=== PATIENT | male | born 1975 | race Caucasian/White ===

== ENCOUNTER 2019-04-24 10:28 | Day surgery (SDC) | payer OTHER ==
[2019-04-17 15:52] VITALS: BMI 27.8
--- NOTE | 2019-04-24 07:39 | HP ---
History & Physical Update - History History: No Change - Physical Physical: No Change - Assessment Assessment: No Change - Plan Plan: No Change
[~2019-04-24 10:28] MED LIST: oxyCODONE HCL 10 MG SUSTAINED ACTING TABLET PO STA
[2019-04-24] MEDS ORDERED: oxyCODONE HCL 10 MG SUSTAINED ACTING TABLET ONE (10:58)
[2019-04-24] MEDS ORDERED: methylPREDNISolone ACET (DEPO) 40 MG/1 ML VIAL ONE (11:51)
[2019-04-24] MEDS ORDERED: GUM MASTIC/STORAX/MSAL/ALCOHOL 1 DRP DROPSBTL MC ONE (11:51)
[2019-04-24] MEDS ORDERED: THROMBIN (RECOMBINANT) 5,000 UNIT VIAL TP ONE ×2 (11:51→15:15)
[2019-04-24] MEDS ORDERED: LIDOCAINE 1%/EPI 1:100000 (20 ML MULTI DOSE VIAL) ONE (11:51)
[2019-04-24] MEDS ORDERED: MIDAZOLAM HCL 2 MG/2 ML SINGLE DOSE VIAL ONE ×4 (11:55→14:38)
[2019-04-24] MEDS ORDERED: BUPIVACAINE HCL/PF 0.5% (5 MG/ML) 30 ML VIAL IJ ONE (11:55)
[2019-04-24] MEDS ORDERED: DEXAMETHASONE SOD PHOSPHATE/PF 10 MG/ML SDV ONE (11:55)
[2019-04-24] MEDS ORDERED: BUPIVACAINE HCL/PF 0.5% (5MG/ML) 10 ML VIAL ONE (13:31)
[2019-04-24] MEDS ORDERED: SUCCINYLCHOLINE CHLORIDE 200 MG/10 ML SYRINGE ONE (13:32)
[2019-04-24] MEDS ORDERED: ceFAZolin SODIUM 1 GM VIAL ONE (13:33)
[2019-04-24] MEDS ORDERED: ONDANSETRON 4 MG/2 ML VIAL ONE ×2 (13:33→16:16)
[2019-04-24] MEDS ORDERED: THROMBIN (BOVINE) 5,000 UNIT VIAL TP ONE (14:40)
[2019-04-24] MEDS ORDERED: GELATIN, ABSORBABLE 100 EACH SPONGE TP ONE (14:40)
[2019-04-24] MEDS ORDERED: oxyCODONE HCL 5 MG TABLET PO PRN ×2 (15:50)
[2019-04-24] MEDS ORDERED: ACETAMINOPHEN 1000 MG/100 ML VIAL (NON FORMULARY) IVPB ONE (15:51)
--- NOTE | 2019-04-24 15:57 | OP ---
Operative Note - Note: Operative Date: 04/24/19 Pre-Operative Diagnosis: L5/S1 stenosis w/ RLE radiculopathy Operation: L5/S1 bilateral laminectomy Post-Operative Diagnosis: Same as Pre-op Surgeon: Ghulam Cui Vessel Slag Worker: Sameer Carrero Anesthesiologist/BOILER COVERER HELPER: Rivera Latham Anesthesia: Spinal Estimated Blood Loss (mls): 15 Fluid Volume Replaced (mls): 700 Operative Report Dictated: Yes
--- NOTE | 2019-04-24 15:58 | SURG ---
Surgery School Psychologist Note School Psychologist: Sameer Carrero PA-C Date of Service: 04/24/19 Diagnosis: L5/S1 stenosis w/ RLE radiculopathy Procedure: L5/S1 bilateral laminectomy I was present for the entirety of the operative procedure. For further detail, please refer to operative report. Visit type - Case Type Case Type: Scheduled - New patient This patient is new to me today: Yes Date on this admission: 04/24/19
--- NOTE | 2019-04-24 15:59 | OP ---
DATE OF OPERATION: 04/24/2019 PREOPERATIVE DIAGNOSIS: Spinal stenosis, L4-5, L5-S1. POSTOPERATIVE DIAGNOSIS: Spinal stenosis, L4-5, L5-S1. PROCEDURE PERFORMED: Laminectomy, L4-5, L5-S1. SURGEON: Ghulam Cui MD LINK FABRIC MACHINE OPERATOR: DOTTIE Glynn. ESTIMATED BLOOD LOSS: 50 mL. INTRAVENOUS FLUIDS: Per Anesthesia. ANESTHESIA: Spinal/TLIP. COMPLICATIONS: None. DISPOSITION: Patient brought to the PACU in stable condition. INDICATIONS FOR SURGERY: Patient is a 43-year-old gentleman who has been suffering from pain from his back down his leg. X-rays and MRI were completed which noted that he had spinal stenosis from L4 down to S1. He had gone through an exhaustive course of treatment for this, which included medications, physical therapy as well as injections. Unfortunately, his pain continued to persist despite all this. At this point, risks, benefits, and alternatives were discussed, and the patient consented to surgery. DESCRIPTION OF PROCEDURE: Patient was brought to the operating room by the anesthesia staff. After appropriate patient identification was performed, spinal anesthesia was given. A TLIP block was also given. Patient was able to position himself prone onto the OR table with all areas of bony prominences well padded at this time. Two needles were placed into his back to maida off the L4 to S1 segment. X-ray was taken to confirm this as correct. Graham were removed, and 10 mL of lidocaine with epinephrine were injected in his back at this time. His back was prepped and draped in a sterile manner. At this point, a timeout was completed. An incision was made from the top of L4 down to the bottom of S1. Dissection was carried down to the fascia. Fascia was split open at this time. Appropriate retractors were then placed. A spinal needle was placed onto the L5 lamina to maida off the L5-S1 level. The interspinous ligament at L5-S1 and L4-5 was removed. The spinous process of L5 was removed. The lamina of L5 was removed. Flavum was removed. A complete decompression was performed such that by the end of the procedure the L5 and S1 nerve roots appeared to be well decompressed. All bleeding was well controlled at this time. Steroid was placed over the nerve root. Gelfoam was placed over that. The fascia was closed with a No. 1 Vicryl suture. Subcutaneous tissues were closed with 2-0 Vicryl suture. Skin was closed with 3-0 Monocryl suture. Dermabond was applied. Steri-Strips were applied. A sterile dressing was applied. Patient was placed supine on the OR bed and brought to the PACU in stable condition. Gildardo MANTILLA/[id number]
[2019-04-24] MEDS ORDERED: LACTATED RINGERS SOLUTION 1,000 ML IV SCH (16:00)
[2019-04-24] MEDS: ONDANSETRON 4 MG/2 ML VIAL IVPUSH PRN ×2 (16:05→16:33)
[2019-04-24] MEDS ORDERED: ACETAMINOPHEN INJECTION 100 ML IVPB ONE ×2 (16:05→17:15)
[2019-04-24] MEDS ORDERED: oxyCODONE HCL 5 MG TABLET ONE (17:10)
[2019-04-24 18:12] VITALS: TEMP 97.9
[2019-04-24 18:27] VITALS: BP 132/76; PULSE 72
== END 2019-04-24 18:27 | disposition home or self-care (01) ==
LOC: FASU 10:28
PROVIDERS: ATTEND Orthopaedic Surgery Orthopaedic Surgery of the Spine
PROC: 01NB0ZZ Release Lumbar Nerve, Open Approach (ICD-10-PCS; principal; 2019-04-24 14:38)
DX: M48.061 Spinal stenosis, lumbar region without neurogenic claudication (principal); M48.07 Spinal stenosis, lumbosacral region
CPT/HCPCS: 72100-TC-FY; 94760; J0131

== ENCOUNTER 2019-05-07 21:31 | Inpatient (IN) | payer OTHER ==
--- NOTE | 2019-05-07 21:55 | HP ---
CHIEF COMPLAINT: Back pain Surgeon: Dr. Cui HISTORY OF PRESENT ILLNESS: 43 year-old male s/p bilateral laminectomy on 04/24/[address] Cui, discharged the same day. Two days ago developed headache, nausea, vomiting, and back pain. The symptoms are better with lying down, worse with sitting, standing, walking. Patient saw Dr. Cui earlier today, and later presented to the [facility] ED. MRI imaging showed a fluid collection at L5-S1. Patient was transferred from [facility] to this evening. Patient being admitted to the hospitalist service at the request of Dr. Cui. Recent Travel: No PAST MEDICAL HISTORY: Asthma Complex Regional Pain Syndrome PAST SURGICAL HISTORY: None reported Social History: Smoking: Alcohol: Drugs: Family History: Allergies No Known Allergies Allergy (Verified 04/24/19 10:56) HOME MEDICATIONS: Home Medications Medication Instructions Recorded Oxycodone HCl 10 mg PO PRN PRN 04/17/19 Diazepam [Valium] 5 mg PO Q8H PRN #10 tablet MDD 3 04/24/19 REVIEW OF SYSTEMS CONSTITUTIONAL: Absent: fever, chills, diaphoresis, generalized weakness, malaise, loss of appetite, weight change HEENT: Absent: rhinorrhea, nasal congestion, throat pain, throat swelling, difficulty swallowing, mouth swelling, ear pain, eye pain, visual changes CARDIOVASCULAR: Absent: chest pain, syncope, palpitations, irregular heart rate, lightheadedness , peripheral edema RESPIRATORY: Absent: cough, shortness of breath, dyspnea with exertion, orthopnea, wheezing, stridor, hemoptysis GASTROINTESTINAL: +nausea, vomiting Absent: abdominal pain, abdominal distension, nausea, vomiting, diarrhea, constipation, melena, hematochezia GENITOURINARY: Absent: dysuria, frequency, urgency, hesitancy, hematuria, flank pain, genital pain MUSCULOSKELETAL: +back pain Absent: myalgia, arthralgia, joint swelling, neck pain SKIN: Absent: rash, itching, pallor HEMATOLOGIC/IMMUNOLOGIC: Absent: easy bleeding, easy bruising, lymphadenopathy, frequent infections ENDOCRINE: Absent: unexplained weight gain, unexplained weight loss, heat intolerance, cold intolerance NEUROLOGIC: +headache Absent: focal weakness or paresthesias, dizziness, unsteady gait, seizure, mental status changes, bladder or bowel incontinence PSYCHIATRIC: Absent: anxiety, depression, suicidal or homicidal ideation, hallucinations. PHYSICAL EXAMINATION Vital Signs (72 hours) 05/07/19 21:31 Temperature 98.4 F Pulse Rate 60 Respiratory 18 Rate Blood Pressure 125/75 O2 Sat by Pulse 98 Oximetry (%) GENERAL: The patient was sleeping. Family did not want him disturbed. Lungs: Regular respirations ASSESSMENT/PLAN: 43 year-old male with a PMH significant for L5/S1 stenosis with RLE radiculopathy s/p bilateral laminectomy on 04/24/19 at [facility] with Dr. Cui. Admitted for headache, backpain. s/p L5/S1 bilateral laminectomy on 04/24/19 Positional headache Back pain with radiculopathy --s/p repair of dural tear FEN Fluids: LR@125mL/hr Electrolytes: replete as indicated Nutrition: NPO; clears this evening if patient asks DVT prophylaxis: SCDs Physical therapy Dispo: continues to require inpatient care. Full code. Visit type - Emergency Visit Emergency Visit: No - New Patient This patient is new to me today: Yes Date on this admission: 05/08/19 - Critical Care Critical Care patient: No
[2019-05-07] MEDS ORDERED: MORPHINE SULFATE 2 MG/ML VIAL IVPUSH PRN (22:04)
[2019-05-07] MEDS ORDERED: ONDANSETRON 4 MG/2 ML VIAL IVPUSH PRN (22:10)
[2019-05-07] MEDS ORDERED: SODIUM CHLORIDE 1,000 ML IV SCH (22:15)
[2019-05-07] MEDS: morphine CARPU-JECT 2 MG/1 ML DISP.SYRIN IVPUSH PRN (22:48)
[2019-05-07] MEDS ORDERED: PIPERACILLIN/TAZOB 3.375 GM 3.375 GM in DEXTROSE 5%-WATER - 50 ML IVPB SCH ×2 (23:00→23:15)
[2019-05-07] MEDS ORDERED: ACETAMINOPHEN 1000 MG/100 ML VIAL (NON FORMULARY) IVPB PRN (23:05)
[2019-05-07 23:28] VITALS: BMI 27.1
[2019-05-07] MEDS ORDERED: DEXTROSE 5%-WATER - 50 ML IVPB ONE (23:31)
[2019-05-07] MEDS ORDERED: PIPERACILLIN/TAZOBACTAM 3.375 GM VIAL IVPB ONE (23:31)
[2019-05-08] MEDS ORDERED: PIPERACILLIN/TAZOBACTAM 3.375 GM VIAL IVPB ONE ×3 (01:11→08:39)
[2019-05-08] MEDS ORDERED: DEXTROSE 5%-WATER - 50 ML IVPB ONE ×3 (01:11→08:39)
[2019-05-08] MEDS: morphine CARPU-JECT 2 MG/1 ML DISP.SYRIN IVPUSH PRN ×3 (05:55→20:21)
[2019-05-08] MEDS: PIPERACILLIN/TAZOB 3.375 GM 3.375 GM in DEXTROSE 5%-WATER - 50 ML IVPB SCH ×2 (06:02→09:45)
[2019-05-08 08:17] LABS: BASO % 0.4 % (0-2.0); EOS % 1.2 % (0-4.5); HEMOGLOBIN 12.6 GM/dl (11.7-16.9); LYMPH % 18.2 % (8-40); MCH 29.9 pg (25.7-33.7); MCHC 34.2 g/dl (32.0-35.9); MEAN CELL VOLUME 87.6 fl (80-96); MEAN PLT VOLUME 8.4 fl (7.5-11.1); NEUT % 74.2 % (42.8-82.8); PLATELET COUNT 222 K/MM3 (134-434); RBC 4.23 M/mm3 (4.00-5.60); RDW 12.4 % (11.9-15.9); WHITE BLOOD COUNT 7.6 K/mm3 (4.0-10.8)
[2019-05-08 08:22] LABS: ALBUMIN 3.3 g/dl (3.4-5.0); BILIRUBIN,TOTAL 1.4 mg/dl (0.2-1); CALCIUM 9.2 mg/dl (8.5-10); CREATININE 1.2 mg/dl (0.55-1.3); POTASSIUM 4.4 mmol/L (3.5-5.1)
[2019-05-08] MEDS ORDERED: HYDROmorphone HCL CARPU-JECT 1 MG/1 ML DISP.SYRIN ONE (08:23)
[2019-05-08 08:27] LABS: ACTIVATED PTT 29.5 SECONDS (25.2-36.5)
[2019-05-08 08:32] LABS: INR 1.08 (0.82-1.09); PROTHROMBIN TIME (PATIENT) 12.1 SEC (10.2-13.0)
[2019-05-08] MEDS ORDERED: HYDROmorphone HCL CARPU-JECT 1 MG/1 ML DISP.SYRIN IVPUSH ONE (08:45)
[2019-05-08] MEDS ORDERED: DEXAMETHASONE SOD PHOSPHATE 4 MG/1 ML VIAL ONE (09:16)
[2019-05-08] MEDS ORDERED: ONDANSETRON 4 MG/2 ML VIAL ONE ×2 (09:16→13:14)
[2019-05-08] MEDS ORDERED: ceFAZolin SODIUM 1 GM VIAL ONE (09:16)
[2019-05-08] MEDS ORDERED: SODIUM CHLORIDE 0.9% P/F 10 ML VIAL IJ ONE ×2 (09:16→10:58)
[2019-05-08] MEDS ORDERED: LIDOCAINE HCL/PF 2% SDV 5ML VIAL ONE (09:16)
[2019-05-08] MEDS ORDERED: PROPOFOL 20 ML ONE ×3 (09:17→12:48)
[2019-05-08] MEDS ORDERED: methylPREDNISolone ACET (DEPO) 40 MG/1 ML VIAL ONE (10:13)
[2019-05-08] MEDS ORDERED: LIDOCAINE 1%/EPI 1:100000 (20 ML MULTI DOSE VIAL) ONE (10:13)
[2019-05-08] MEDS ORDERED: MIDAZOLAM HCL 2 MG/2 ML SINGLE DOSE VIAL ONE (10:47)
[2019-05-08] MEDS ORDERED: ROCURONIUM BROMIDE 50 MG/5 ML SYRINGE ONE (10:47)
[2019-05-08] MEDS ORDERED: KETAMINE HCL 200 MG/20 ML VIAL ONE (10:47)
[2019-05-08] MEDS ORDERED: SUCCINYLCHOLINE CHLORIDE 200 MG/10 ML SYRINGE ONE (10:47)
[2019-05-08] MEDS ORDERED: DEXMEDETOMIDINE HCL 200 MCG/2 ML IVPB ONE (10:56)
[2019-05-08] MEDS ORDERED: EPHEDRINE SULFATE/0.9% NACL/PF 50 MG/10 ML SYRINGE NR ONE (11:40)
[2019-05-08] MEDS ORDERED: GLYCOPYRROLATE 0.2 MG/1 ML VIAL ONE (12:41)
[2019-05-08] MEDS ORDERED: NEOSTIGMINE METHYLSULFATE 0.5 MG/ML - 10 ML MDV ONE (12:41)
[2019-05-08] MEDS ORDERED: KETOROLAC TROMETHAMINE 30 MG/1 ML VIAL ONE (12:44)
--- NOTE | 2019-05-08 13:08 | OP ---
Operative Note - Note: Operative Date: 05/08/19 Pre-Operative Diagnosis: wound collection s/p laminectomy L5-S1 Operation: wound exploration, primary suture repair of durotomy/duragen and duraseal Surgeon: Ghulam Cui Buffing Wheel Presser: Chitra Middleton Anesthesiologist/SHEARING SHED HAND: Rivera Latham Anesthesia: General Estimated Blood Loss (mls): 20 Fluid Volume Replaced (mls): 1,000 Operative Report Dictated: Yes
--- NOTE | 2019-05-08 13:09 | SURG ---
Surgery Medical Billing Instructor Note Medical Billing Instructor: Chitra Middleton PA-C Date of Service: 05/08/19 Diagnosis: wound collection s/p laminectomy L5-S1 Procedure: wound exploration, primary suture repair of durotomy/duragen and duraseal I was present for the entirety of the operative procedure. For further detail, please refer to operative report. Visit type - Case Type Case Type: ED Admission - Emergency Emergency Visit: Yes ED Registration Date: 05/07/19 Care time: The patient presented to the Emergency Department on the above date and was hospitalized for further evaluation of their emergent condition. - New patient This patient is new to me today: Yes Date on this admission: 05/08/19
[2019-05-08] MEDS ORDERED: morphine CARPU-JECT 2 MG/1 ML DISP.SYRIN IVPUSH PRN (13:14)
[2019-05-08] MEDS ORDERED: oxyCODONE HCL 5 MG TABLET PO PRN ×2 (13:15)
--- NOTE | 2019-05-08 13:25 | PN ---
Physical Exam: SUBJECTIVE: Patient seen and examined at bedside. , daughter, and brother present. Expressed disappointment and concern with the patient's treatment course since initial surgery. Answered all questions. Brought to unit manager [employer] who instructed her on how to obtain copies of the medical record. OBJECTIVE: Vital Signs Period Temp Pulse Resp BP Sys/Doss Pulse Ox Last 24 Hr 97.6 F-98.4 F 58-85 17-18 102-131/60-80 93-99 GENERAL: The patient was sleeping. Family did not want him disturbed. Lungs: Regular respirations Laboratory Results - last 24 hr 05/08/19 05/08/19 05/08/19 07:25 07:25 07:25 WBC 7.6 RBC 4.23 Hgb 12.6 Hct 37.0 MCV 87.6 MCH 29.9 MCHC 34.2 RDW 12.4 Plt Count 222 MPV 8.4 Absolute Neuts (auto) 5.6 Neutrophils % 74.2 Lymphocytes % 18.2 Monocytes % 6.0 Eosinophils % 1.2 Basophils % 0.4 PT with INR 12.1 INR 1.08 PTT (Actin FS) 29.5 Sodium 144 Potassium 4.4 Chloride 111 H Carbon Dioxide 26 Anion Gap 7 L BUN 16.0 Creatinine 1.2 Est GFR (CKD-EPI)AfAm 84.13 Est GFR (CKD-EPI)NonAf 72.59 Random Glucose 105 Calcium 9.2 Magnesium 2.0 Total Bilirubin 1.4 H AST 13 L ALT 18 Alkaline Phosphatase 47 Total Protein 6.0 L Albumin 3.3 L Active Medications Generic Name Dose Route Start Last Admin Trade Name Freq PRN Reason Stop Dose Admin Acetaminophen 1,000 mg 05/08/19 14:30 Ofirmev Injection - IVPB 05/09/19 02:31 Q6H SALLY Docusate Sodium 100 mg 05/08/19 22:00 Colace - PO BID SALLY Sodium Chloride 1,000 mls @ 125 mls/hr 05/07/19 22:15 05/07/19 22:20 Normal Saline - IV 125 mls/hr ASDIR SALLY Administration Cefazolin Sodium 1 gm/ 50 mls @ 100 mls/hr 05/08/19 20:00 Dextrose IVPB 05/09/19 02:29 Q8H-IV SALLY Morphine Sulfate 2 mg 05/08/19 13:15 Morphine Injection - IVPUSH Q3H PRN PAIN LEVEL 7 - 10 Ondansetron HCl 4 mg 05/07/19 22:10 05/08/19 07:51 Zofran Injection IVPUSH 4 mg Q6H PRN Administration NAUSEA Oxycodone HCl 5 mg 05/08/19 13:15 Roxicodone - PO Q6H PRN PAIN LEVEL 1-5 Oxycodone HCl 10 mg 05/08/19 13:15 Roxicodone - PO Q6H PRN PAIN LEVEL 6-10 ASSESSMENT/PLAN:
--- NOTE | 2019-05-08 13:58 | OP ---
DATE OF OPERATION: 05/08/2019 PREOPERATIVE DIAGNOSIS: Dural tear. POSTOPERATIVE DIAGNOSIS: Dural tear. PROCEDURE PERFORMED: Laminectomy plus repair of dura. SURGEON: Ghulam Cui MD TELEVISION INSTALLER HELPER: DOTTIE Kelley ESTIMATED BLOOD LOSS: 50 mL. INTRAVENOUS FLUIDS: Per Anesthesia. ANESTHESIA: General. COMPLICATIONS: None. DISPOSITION: Patient brought to PACU in stable condition. FINDINGS: Dural tear x2 repaired with 4-0 Nurolon suture. INDICATION OF SURGERY: Patient is a 43-year-old gentleman who had undergone a laminectomy 2 weeks ago. He had been seen in the office 1 week after surgery. He had been fine. The following week, he began to have pain in his neck as well as headaches. He was admitted to [facility] ER where an MRI showed that he had a CSF leak. He was transferred to [place]. I had a discussion with him regarding the MRI findings. We discussed different treatment options for this, and at this point, we discussed the role of surgery with the repair of dura. Risks, benefits, and alternatives were discussed, and the patient consented to surgery. DESCRIPTION OF OPERATION: Patient brought to the operating room by the anesthesia staff. After appropriate patient identification was performed, general anesthesia was given. He was placed prone onto the OR table with all areas of bony prominences well padded at this time. His back was prepped and draped in a sterile manner. At this point, timeout was completed. His previous incision was opened up. Upon opening up his previous incision, fluid was noted; it was cleaned. A thorough irrigation was performed of the area. The microscope was brought in. His dura was explored. He was noted to have 2 holes in his dura. Both holes appeared to be next to bone. It appears that there was some sharp edges of bone that poked into his dura, caused him to have dural tears. Both dural tears were fixed with 4-0 Nurolon suture. Multiple Valsalva maneuvers were done. There was no leakage. Irrigation was performed. A patch and DuraSeal were placed over the dura. All bleeding was well controlled. The fascia was closed with a number 1 Vicryl suture. Subcutaneous tissues were closed with 2-0 Vicryl suture. Skin was closed with 3-0 Monocryl suture. Dermabond was applied. Steri-Strips were applied. A sterile dressing was applied. Patient was placed supine on the OR bed and brought to the PACU in stable condition. Gildardo MANTLILA/[id number]
[2019-05-08] MEDS ORDERED: LACTATED RINGERS SOLUTION 1,000 ML IV SCH (14:00)
[2019-05-08] MEDS ORDERED: FAMOTIDINE 20 MG/50 ML IVPB 20 MG/50 ML MG IVPB ONE (14:02)
[2019-05-08] MEDS ORDERED: FAMOTIDINE 20 MG PREMIXED IVPB IVPB ONE (14:05)
[2019-05-08] MEDS ORDERED: ACETAMINOPHEN 1000 MG/100 ML VIAL (NON FORMULARY) IVPB SCH ×2 (14:30→20:30)
[2019-05-08] MEDS ORDERED: ACETAMINOPHEN 1000 MG/100 ML VIAL (NON FORMULARY) IVPB STA (15:34)
[2019-05-08] MEDS: ACETAMINOPHEN 1000 MG/100 ML VIAL (NON FORMULARY) IVPB SCH ×2 (16:04→22:32)
[2019-05-08] MEDS: CEFAZOLIN 1 GM/D5W 1 GM/50 ML BAG IVPB SCH (20:18)
[2019-05-08] MEDS ORDERED: diazePAM 5 MG TABLET PO PRN (21:18)
[2019-05-08] MEDS: DOCUSATE SODIUM 100 MG CAPSULE (FP) PO SCH (22:31)
[2019-05-08 22:55] VITALS: TEMP 97.9
[2019-05-09] MEDS: morphine CARPU-JECT 2 MG/1 ML DISP.SYRIN IVPUSH PRN ×2 (00:31→06:49)
[2019-05-09] MEDS: ACETAMINOPHEN 1000 MG/100 ML VIAL (NON FORMULARY) IVPB SCH ×2 (03:35→10:00)
[2019-05-09] MEDS: CEFAZOLIN 1 GM/D5W 1 GM/50 ML BAG IVPB SCH (04:00)
[2019-05-09 06:54] VITALS: BP 111/64; PULSE 72
[2019-05-09 08:37] LABS: BASO % 0.2 % (0-2.0); EOS % 0.5 % (0-4.5); HEMATOCRIT 35.1 % (35.4-49); HEMOGLOBIN 12.1 GM/dl (11.7-16.9); LYMPH % 14.4 % (8-40); MCH 30.2 pg (25.7-33.7); MCHC 34.4 g/dl (32.0-35.9); MEAN CELL VOLUME 87.6 fl (80-96); MEAN PLT VOLUME 8.6 fl (7.5-11.1); MONO % 4.4 % (3.8-10.2); NEUT % 80.5 % (42.8-82.8); PLATELET COUNT 225 K/MM3 (134-434); RBC 4.01 M/mm3 (4.00-5.60); RDW 12.2 % (11.9-15.9); WHITE BLOOD COUNT 12.1 K/mm3 (4.0-10.8)
[2019-05-09 08:43] LABS: ALBUMIN 3.1 g/dl (3.4-5.0); BILIRUBIN,TOTAL 0.5 mg/dl (0.2-1); CALCIUM 8.7 mg/dl (8.5-10); CREATININE 0.9 mg/dl (0.55-1.3); MAGNESIUM 1.8 mg/dL (1.8-2.4); POTASSIUM 3.9 mmol/L (3.5-5.1); TOT PROT 5.5 g/dl (6.4-8.2)
[2019-05-09] MEDS: DOCUSATE SODIUM 100 MG CAPSULE (FP) PO SCH (09:35)
--- NOTE | 2019-05-09 10:12 | PN ---
Progress Note (short form) - Note Progress Note: ANESTHESIA POSTOP 43 YO MALE POD#1 A/P REPAIR OF DURAL TEAR Patient resting in bed. Pain adequately controlled. Tolerating PO. VSS, Afebrile Continue current care. Encouraged IS. No anesthetic complications.
--- NOTE | 2019-05-09 10:20 | PN ---
Progress Note (short form) - Note Progress Note: POD#1 Pt oob to bathroom last pm. No headaches with oob. This am he does have a dull headache at base of skull. Overall, he has back pain and some general aches but feels much better. No nausea this am. No photophobia. Vital Signs Period Temp Pulse Resp BP Sys/Doss Pulse Ox Last 24 Hr 97.8 F-98.1 F 50-84 10-18 106-132/55-84 97-100 GEN: A70x3, NAD CV: RRR Lungs: CTA b/l Back: Dressing changed. Incision c/d/i with steri-strips. New 4x4 gauze/ tegaderm applied. No drainage/ecchymosis or redness noted. Neuro: / flexion/extension b/l to upper ext. /5 dorsi/plantar flexion b/l. LE: no calf tenderness/swelling noted b/l CBC, BMP 05/09/19 07:25 05/09/19 07:25 A/p: 43 yo male s/p L5-S1 laminectomy 04/24 with post-operative collection. Now, s /p wound exploration and repair of dural tear Spoke with Dr. Cui and the medical team. Will monitor the patient for symptoms of a headache when oob/ambuating and sitting upright. If he continue to improve without an increase in pain/headache then he may be discharged to home with follow-up with Dr. Cui next week. I spoke with the patient regarding caffeine intake, he normally does drink coffee. This may help with his dull headache symptoms. If not we can given him fiorocet as needed. I also advised him to hold off on his regular PT session until seen by Dr. Cui in the office. He may resume normal activity as walking. Keep dressing dry and covered at all times. <Chitra Middleton - Last Filed: 05/09/19 10:10> - Note Progress Note: Patient is comfortable this AM No headaches today Was able to ambulate with minimal pain Will wait till the afternoon and discharge him if stable <Ghulam Cui - Last Filed: 05/12/19 13:54>
--- NOTE | 2019-05-09 14:50 | DS ---
"Physical Exam: SUBJECTIVE: Patient seen and examined OBJECTIVE: Vital Signs Period Temp Pulse Resp BP Sys/Doss Pulse Ox Last 24 Hr 97.9 F-97.9 F 62-84 18-18 106-118/55-64 98-99 PHYSICAL EXAM GENERAL: The patient is awake, alert, and fully oriented, in no acute distress. HEAD: Normal with no signs of trauma. EYES: PERRL, extraocular movements intact, sclera anicteric, conjunctiva clear. ENT: Ears normal, nares patent, oropharynx clear without exudates, moist mucous membranes. NECK: Trachea midline, full range of motion, supple. LUNGS: Breath sounds equal, clear to auscultation bilaterally, no wheezes, no crackles, no accessory muscle use. HEART: Regular rate and rhythm, S1, S2 without murmur, rub or gallop. ABDOMEN: Soft, nontender, nondistended, normoactive bowel sounds, no guarding, no rebound, no hepatosplenomegaly, no masses. EXTREMITIES: 2+ pulses, warm, well-perfused, no edema. NEUROLOGICAL: Cranial nerves II through XII grossly intact. Normal speech, gait not observed. PSYCH: Normal mood, normal affect. SKIN: Warm, dry, normal turgor, no rashes or lesions noted. LABS Laboratory Results - last 24 hr 05/09/19 05/09/19 07:25 07:25 WBC 12.1 H RBC 4.01 Hgb 12.1 Hct 35.1 L MCV 87.6 MCH 30.2 MCHC 34.4 RDW 12.2 Plt Count 225 MPV 8.6 Absolute Neuts (auto) 9.8 Neutrophils % 80.5 Lymphocytes % 14.4 D Monocytes % 4.4 Eosinophils % 0.5 Basophils % 0.2 Sodium 140 Potassium 3.9 Chloride 109 H Carbon Dioxide 25 Anion Gap 6 L BUN 15.0 Creatinine 0.9 Est GFR (CKD-EPI)AfAm 119.13 Est GFR (CKD-EPI)NonAf 102.79 Random Glucose 97 Calcium 8.7 Magnesium 1.8 Total Bilirubin 0.5 AST 14 L ALT 15 Alkaline Phosphatase 47 Total Protein 5.5 L Albumin 3.1 L HOSPITAL COURSE: Date of Admission:05/07/19 Date of Discharge: 05/09/19 Discharge Summary Reason For Visit: SURGICAL COMPLICATION - Instructions Diet, Activity, Other Instructions: Post Operative Instructions - Dr Cui Diet: You may resume your regular diet. We recommend eating plenty of fiber rich foods to prevent constipation, which can be caused by taking narcotic pain medications. You may also use a stool softener such as DulcoEase. We recommend drinking plenty of water unless you are on fluid restrictions for another medical condition. If you are a diabetic, make sure to keep your glucose well controlled as elevated glucose levels promote infection. Medications: You may resume your previous medications unless otherwise instructed by your surgeon, primary care doctor or physical therapy director. You have been prescribed a Narcotic pain medication. Driving or drinking alcohol is PROHIBITED while taking narcotic pain medication, as is operating any heavy machinery. Activity: No bending and or twisting at the waist. No lifting greater than [address] until seen in the office for your first post-operative visit. You may be a passenger for a short time (20-30 minutes) until you are able to tolerate longer distances. Wound Care: Keep area clean and dry. May remove dressing in two (2) days and replace with clean gauze and occlusive dressing such as a tegaderm. NO BATHS. You may shower starting two (2) days after your surgery. When showering, leave the occlusive(plastic) dressing in place and change if it appears wet. Avoid direct water stream onto your incision. General Recommendations: If sitting, use only a straight back chair to ensure proper support not to exceed a half hour at a time. Lie only on a firm mattress, no couches or recliner chairs. You may lie on your back or side, but not on your abdomen. Absolutely no bending, stooping, pushing, lifting or straining. Avoid housework, especially vacuuming and sweeping. OK to cook, as long as you are not lifting anything heavier than 5 pounds. Learn proper body mechanics to maintain a neutral spine position. Increasing pain is a red flag telling you to rest. DO NOT: Engage in strenuous activity for at least 12 weeks after surgery. Take stool softeners and/or laxatives as needed to prevent constipation which is a side effect of narcotic pain medications to avoid straining with a bowel movement. Call your surgeon or report to the ED if you develop: Headaches which feel worse when sitting up and better when lying down, dizziness /imbalance, nausea and vomiting, changes in hearing, sensitivity to light or sound, pain between the shoulder blades. Call your surgeon or report to the ED if you develop: Fevers over 101.5 Chest pain, trouble breathing, calf pain Drainage from the incision (yellow/green, foul smelling) Follow-up Call surgeon's office to schedule your follow-up appointment in two weeks. Referred to following clinics/specialists for follow-up care: Ghulam Cui MD [facility] [place]/[address] [address] [phone] This report was requested by: Chitra Middleton | Reference #: [id number] 04/25/2019 05/03/2019 diazepam 10 mg tablet 60 30 04/25/2019 05/03/2019 oxycodone hcl 20 mg tablet 60 30 Referrals: Ghulam Cui MD [Staff Physician] - 1 Week Disposition: HOME - Home Medications Comprehensive Discharge Medication List: Ambulatory Orders Oxycodone HCl 10 mg PO TID PRN 04/17/19 Diazepam [Valium] 10 mg PO BID PRN MDD 2 05/07/19"
== END 2019-05-09 13:42 | disposition home or self-care (01) | DRG 23 ==
LOC: FM/S 21:31
PROVIDERS: ADMIT Internal Medicine; ATTEND Nurse Practitioner Acute Care
PROC: 00UT0KZ Supplement Spinal Meninges with Nonautologous Tissue Substitute, Open Approach (ICD-10-PCS; principal; 2019-05-08 11:37)
DX: G97.82 Other postprocedural complications and disorders of nervous system (principal); G96.11 Dural tear; G96.0 Cerebrospinal fluid leak; J45.909 Unspecified asthma, uncomplicated; G90.50 Complex regional pain syndrome I, unspecified; M54.17 Radiculopathy, lumbosacral region; G44.89 Other headache syndrome; Y83.8 Other surgical procedures as the cause of abnormal reaction of the patient, or of later complication, without mention of misadventure at the time of the procedure
CPT/HCPCS: 36415; 80053; 83735; 85025; 85610; 85730; 87040; 94760; J0131; J7030